=== PATIENT | female | born 1970 | race Caucasian/White ===

== ENCOUNTER 2016-12-16 20:40 | Emergency (ER) | payer MEDICAID ==
[~2016-12-16] VITALS: Ht 165.1 cm; Wt 76.0 kg
[~2016-12-16 20:40] MED LIST: PENI500T
[2016-12-16 20:45] VITALS: BP 161/103; PULSE 122; RESP 18; TEMP 98.6; O2SAT 99
[2016-12-16] MEDS ORDERED: LISI-519 PO (20:59)
[2016-12-16] MEDS ORDERED: CLON1 PO (20:59)
[2016-12-16] MEDS ORDERED: [UNRECOGNIZED DRUG - OTHER] (20:59)
[2016-12-16] MEDS ORDERED: ONDANSETRON ODT 4 MG TAB PO ONE (21:15)
[2016-12-16] MEDS ORDERED: ACETAMINOPHEN/HYDROcodone 325 MG/5 MG TAB PO ONE (21:15)
[2016-12-16] MEDS ORDERED: ONDANSETRON HCL 4 MG/2 ML VIAL IV PUSH ONE (21:15)
--- NOTE | 2016-12-16 21:17 | PD ---
HPI Chief Complaint: Bite or Sting Time Seen by Provider: 20:59 Travel History International Travel<30 days: No Contact w/Intl Traveler<30days: No Traveled to known affect area: No History of Present Illness HPI 46-year-old female complains of pain behind the right knee. Patient states that she got stung by jellyfish about half an hour prior to arrival. Patient went of nausea vomiting. Patient denies any abdominal pain. Patient denies any other injury. Patient states the pain is sharp burning pain localized behind the right knee. Patient denies any pain radiation. On a scale of 1-10 the pain is a 10. PFSH Past Medical History Anxiety: Yes Hypertension: Yes ?: Not LMP: END OF OCTOBER Past Surgical History Cholecystectomy: Yes Other Surgery: Yes (hernia repair) Social History Alcohol Use: Yes (weekends) Tobacco Use: No Allergies-Medications (Allergen,Severity, Reaction): Coded Allergies: Codeine (Verified Allergy, Mild, HIVES, 12/16/16) Nonsteroidal Anti-Inflammatory Agts (Verified Allergy, Unknown, STOMACHE BLEEDING, 12/16/16) Tramadol (Verified Allergy, Unknown, HIVES, 12/16/16) Reported Meds & Prescriptions Reported Meds & Active Scripts Active Reported [diarrhea medication] Lisinopril 5 Mg Tab 5 Mg PO DAILY Klonopin (Clonazepam) 1 Mg Tab 1 Mg PO BID Review of Systems General / Constitutional: No: Fever Eyes: No: Visual changes HENT: No: Headaches Cardiovascular: No: Chest Pain or Discomfort Respiratory: No: Shortness of Breath Gastrointestinal: No: Abdominal Pain Genitourinary: No: Dysuria Musculoskeletal: No: Pain Skin: No Rash Neurologic: No: Weakness Psychiatric: No: Depression Endocrine: No: Polydipsia Hematologic/Lymphatic: No: Easy Bruising Physical Exam Narrative GENERAL: Well-nourished, well-developed patient. SKIN: Focused skin assessment warm/dry. HEAD: Normocephalic. EYES: No scleral icterus. No injection or drainage. NECK: Supple, trachea midline. No JVD or lymphadenopathy. CARDIOVASCULAR: Regular rate and rhythm without murmurs, gallops, or rubs. RESPIRATORY: Breath sounds equal bilaterally. No accessory muscle use. GASTROINTESTINAL: Abdomen soft, non-tender, nondistended. MUSCULOSKELETAL: No cyanosis, or edema. BACK: Nontender without obvious deformity. No CVA tenderness. Patient has mild irritation to the skin behind her right knee. No hives noted. Data Data Last Documented VS Vital Signs Date Time Temp Pulse Resp B/P Pulse Ox O2 Delivery O2 Flow Rate FiO2 12/16/16 20:45 98.6 122 18 161/103 99 Orders Acetamin-Hydrocod 325-5 Mg ([place] 5-325 (12/16/16 21:15) Ondansetron Inj (Zofran Inj) (12/16/16 21:15) Ondansetron Odt (Zofran Odt) (12/16/16 21:15) MDM Medical Decision Making Medical Screen Exam Complete: Yes Emergency Medical Condition: Yes Differential Diagnosis Differential diagnosis including contact dermatitis. Narrative Course 46-year-old female with pain behind her right knee after stung by jellyfish. Vinegar solution applied to the area of the skin behind the right knee. Hydrocodone 5/325, one tablet by mouth given. Zofran 4 mg ODT. Diagnosis Primary Impression: Contact dermatitis Qualified Code: L24.9 - Irritant contact dermatitis, unspecified trigger Patient Instructions: General Instructions Additional Instructions: Tylenol for pain. [id number] cortisone cream as needed. Follow-up with personal physician. Return as needed. Med/Other Pt SpecificInfo: No Change to Meds Disposition: 01 DISCHARGE HOME Condition: Stable Osei Claudio MD Dec 16, 2016 21:17
== END 2016-12-16 22:03 | disposition home or self-care (01) ==
LOC: PHEFT 20:40
DX: L24.9 Irritant contact dermatitis, unspecified cause (principal); I10 Essential (primary) hypertension; Z86.59 Personal history of other mental and behavioral disorders; T63.621A Toxic effect of contact with other jellyfish, accidental (unintentional), initial encounter
CPT/HCPCS: 99283